=== PATIENT | male | born 1955 | race Caucasian/White ===

== ENCOUNTER 2023-03-28 11:12 | Emergency (ER) | payer MEDICARE, SELFPAY ==
[2023-03-28 11:27] VITALS: BP 121/53; PULSE 72; RESP 20; TEMP 35.6; O2SAT 97
--- NOTE | 2023-03-28 11:46 | ED.EXTPRO ---
HPI - Extremity Problem General Chief complaint: Extremity Problem,Nontraumatic Stated complaint: rt leg pain and swelling Time Seen by Provider: 03/28/23 11:40 Source: patient, family, RN notes reviewed and old records reviewed Mode of arrival: ambulatory Limitations: no limitations History of Present Illness HPI Narrative: right calf67 year old male who presents to [facility] care with complaints of right knee swelling with pain and swelling and pain to the right calf for one week duration. Patient denies any recent injury to his knee or to his calf, reports ligament injury to his right knee when adolescent that he reports still causes him some problems. Patient reports that his right calf is tight and painful when he is up on his feet especially. Patient does have palpable tenderness to right medial knee,and some mild pain at rest to calf has noted varicose veins. Patient reports that he started wearing compression hose a few days ago thinking it would help his swelling. Patient reports no chest pain or any shortness of breath.Patient reports that he has been applying Biofreeze to knee and calf, used ice, and elevation of right leg. MD Complaint: extremity pain and extremity swelling Onset (ago): week(s) (1) Location: right and lower extremity (knee and right calf) Severity scale (1-10): 8 Exacerbating factors: weight bearing Related Data Home Medications Medication Instructions Recorded Confirmed aspirin 81 mg tablet,delayed 81 mg PO DAILY 09/22/20 03/28/23 release multivitamin 1 tablet PO DAILY 09/22/20 03/28/23 Allergies Allergy/AdvReac Type Severity Reaction Status Date / Time PHENYTOIN SODIUM Allergy Mild pt does Uncoded 03/28/23 11:14 not remember Review of Systems Review of Systems: CONSTITUTIONAL: Denies fever, chills, or sweats. EYES: Denies visual changes, redness, or discharge. ENT: Denies rhinorrhea, congestion, sore throat, or otalgia. CARDIOVASCULAR: Denies chest pain, palpitations, or edema. RESPIRATORY: Denies cough or dyspnea. GASTROINTESTINAL: Denies abdominal pain, nausea, vomiting, or diarrhea. GENITOURINARY: Denies dysuria or hematuria. SKIN: Denies rash or itching. MUSCULOSKELETAL: Denies back pain reports pain to right knee and right calf,no other reported joint pain, or myalgia. NEUROLOGIC: Denies headache, numbness, or weakness. PSYCHIATRIC: Denies anxiety or depression. All systems reviewed & are unremarkable except as noted in HPI and below PMFSH Past Medical History Medical History COVID-19 History of closed head injury History of renal calculi History of seizure Mixed hyperlipidemia Type 2 diabetes mellitus without complication, with no history of insulin use Surgical History Surgical History History of laparoscopic cholecystectomy History of lithotripsy Family History Family History Mother CHF (congestive heart failure) Father COPD (chronic obstructive pulmonary disease) Social History Social History Smoking packs per day: 1.5 Smoking cigarettes per day: 30.0 Smoking status: Former smoker Tobacco type: cigarettes Smoking end date: 08/14/01 Alcohol intake: never Substance use: never Substance use type: does not use Lack of Transportation: No Lack of Food: Never True Current Housing: I Have Housing Concerned About Future Housing: No Difficulty Paying Gas/Electric Bills: No Difficulty Paying for Meds: No Currently Unemployed: No Education: Decline to Answer Difficulty w/ Childcare or Family Care: No Living arrangements: with family Occupation/Education: retired Additional occupation/education comments: [employer] Gender identity (if verbalized by the patient): Male Sexual Orientat
== END 2023-03-28 11:58 | disposition short-term general hospital (02) ==
PROVIDERS: Emergency Provider Registered Nurse; PCP Family Medicine
DX: M25.461 Effusion, right knee (principal); M25.561 Pain in right knee; M79.661 Pain in right lower leg; Z87.891 Personal history of nicotine dependence; E78.2 Mixed hyperlipidemia; E11.9 Type 2 diabetes mellitus without complications; Z79.84 Long term (current) use of oral hypoglycemic drugs; Z86.16 Personal history of COVID-19; Z79.82 Long term (current) use of aspirin
CPT/HCPCS: 99212; G0463

== ENCOUNTER 2023-03-28 12:15 | Emergency (ER) | payer MEDICARE, SELFPAY ==
--- NOTE | ~2023-03-28 | XR_ITS ---
EXAMINATION: XR knee RT 3V DATE: 03/28/2023 13:24 INDICATION: Right knee pain TECHNIQUE: Three views of the right knee were obtained. COMPARISON: 08/06/2013 FINDINGS: Alignment is normal. No fracture or osteochondral lesion. There is tricompartmental osteoar thritis of the knee, moderate in the medial and patellofemoral compartments. No joint effusion/synovi tis. Soft tissues are unremarkable. IMPRESSION: 1. No acute osseous abnormality. Reviewed, dictated and finalized at location L.
--- NOTE | ~2023-03-28 | US_ITS ---
EXAMINATION: US venous doppler LE RT DATE: 03/28/2023 12:50 INDICATION: Right calf pain and swelling. TECHNIQUE: Grayscale ultrasound images without and with compression and Doppler ultrasound images of the right lower extremity veins were obtained. COMPARISON: Ultrasound 08/06/2013 FINDINGS: The visualized portions of right common femoral vein, profunda (deep) femoral vein, femoral vein, pop liteal vein, peroneal veins, posterior tibial veins, and greater saphenous vein outflow are patent. IMPRESSION: 1. No deep venous thrombosis. Reviewed, dictated and finalized at location A.
[2023-03-28 12:20] VITALS: BP 143/70; PULSE 73; RESP 20; TEMP 36.9; O2SAT 99
--- NOTE | 2023-03-28 12:32 | PC.NURSE ---
pt off the floor for ultrasound
--- NOTE | 2023-03-28 12:48 | ED.EXTPRO ---
HPI - Extremity Problem General Chief complaint: Extremity Problem,Nontraumatic Stated complaint: right leg swelling Time Seen by Provider: 03/28/23 12:20 History of Present Illness HPI Narrative: 67-year-old male presented the ED for evaluation of right leg pain has been ongoing for the last week. Patient initially followed up at the urgent care but was referred to the emergency department for further work-up and DVT rule out. Patient is complaining of right medial knee pain that has been ongoing for the last week. Patient states he has had increased pain in his calf after favoring the knee. Patient has been taking naproxen for pain control without significant improvement. Related Data Home Medications Medication Instructions Recorded Confirmed aspirin 81 mg tablet,delayed 81 mg PO DAILY 09/22/20 03/28/23 release multivitamin 1 tablet PO DAILY 09/22/20 03/28/23 Allergies Allergy/AdvReac Type Severity Reaction Status Date / Time PHENYTOIN SODIUM Allergy Mild pt does Uncoded 03/28/23 11:14 not remember Review of Systems Review of Systems: All systems reviewed & are unremarkable except as noted in HPI and below PMFSH Past Medical History Medical History COVID-19 History of closed head injury History of renal calculi History of seizure Mixed hyperlipidemia Type 2 diabetes mellitus without complication, with no history of insulin use Surgical History Surgical History History of laparoscopic cholecystectomy History of lithotripsy Family History Family History Mother CHF (congestive heart failure) Father COPD (chronic obstructive pulmonary disease) Social History Social History (Updated 01/16/23 @ 15:34 by Jane Gomez MA) Smoking packs per day: 1.5 Smoking cigarettes per day: 30.0 Smoking status: Former smoker Tobacco type: cigarettes Smoking end date: 08/14/01 Alcohol intake: never Substance use: never Substance use type: does not use Lack of Transportation: No Lack of Food: Never True Current Housing: I Have Housing Concerned About Future Housing: No Difficulty Paying Gas/Electric Bills: No Difficulty Paying for Meds: No Currently Unemployed: No Education: Decline to Answer Difficulty w/ Childcare or Family Care: No Living arrangements: with family Occupation/Education: retired Additional occupation/education comments: [employer] Gender identity (if verbalized by the patient): Male Sexual Orientation (if Verbalized by the Patient): Straight or Heterosexual Exam Narrative: APPEARANCE: Well appearing, no pain, no distress, well-nourished. HEAD: normocephalic, atraumatic. EYES: PERRLA/EOMI, conjunctivae clear. NOSE: Normal no drainages. RESPIRATORY: Airway patent, respirations nonlabored. Clear to auscultation bilaterally, no rales, rhonchi, wheezing. CARDIOVASCULAR: Regular rate and rhythm without murmurs rubs or gallops. ABDOMINAL: Soft, nontender, nondistended, normal bowel sounds MUSCULOSKELETAL: Medial right knee tenderness to palpation NEURO: Alert. Cranial nerves II through XII intact. Good gait. Good coordination SKIN: Warm, dry. Normal Color Course Course Emergency Course: 67-year-old male presented to ED for evaluation of right knee pain. Ultrasound was negative for DVT. X-ray showed no acute fracture dislocation. Patient has been taking naproxen for pain control. Patient was provided Flexeril for the muscular calf pain. Patient was encouraged of close follow-up with orthopedics and with his primary care physician for additional outpatient testing. Patient and family were comfortable with the plan for discharge and close follow-up Vital Signs Vital signs: Vital Signs Temperature 98.4 F 03/28/23 12:20 Pulse Rate 73 08
[2023-03-28] MEDS: CYCLOBENZAPRINE HCL 10 MG TABLET PO (13:16)
== END 2023-03-28 13:49 | disposition home or self-care (01) ==
PROVIDERS: Emergency Provider Emergency Medicine; PCP Family Medicine
DX: M25.561 Pain in right knee (principal); M79.661 Pain in right lower leg; E11.9 Type 2 diabetes mellitus without complications; E78.2 Mixed hyperlipidemia; Z86.16 Personal history of COVID-19; Z87.442 Personal history of urinary calculi; Z87.891 Personal history of nicotine dependence; Z90.49 Acquired absence of other specified parts of digestive tract; Z79.82 Long term (current) use of aspirin; Z79.84 Long term (current) use of oral hypoglycemic drugs
CPT/HCPCS: 73562; 93971; 99284; A9270

== ENCOUNTER → 2023-08-29 10:39 | Outpatient (CLI) | payer MEDICARE, SELFPAY ==
--- NOTE | ~2023-08-29 | XR_ITS ---
XR lumbar spine 6V w bending DATE: 08/29/2023 11:01 INDICATION: Back pain TECHNIQUE: Standing AP, lateral, bilateral oblique views and coned lateral lumbosacral view. Standing flexion and extension views. COMPARISON: None FINDINGS: There is diffuse osteopenia. There is mild thoracolumbar dextroscoliosis. There is normal alignment of the lumbar spine with no evidence of instability with flexion or extensi on. Is mild degenerative disc disease at L1-2 and L2-3, moderately severe degenerative disease at L3-4 an d L4-5 and severe degenerative disc disease at L5-S1. No fracture or bone destruction, spondylolysis or spondylolisthesis. The sacroiliac joints are intact. There is calcification of the abdominal aorta and iliac arteries; no apparent abdominal aortic aneury sm. Probable right renal calcified calculi. Status post cholecystectomy. IMPRESSION: Mild dextro scoliosis Osteopenia Multilevel degenerative disc disease, most severe at L5-S1 Probable right nephrolithiasis Status post cholecystectomy Reviewed, dictated and finalized at location L. E ENGINEER
== END ==
PROVIDERS: PCP Anesthesiology Pain Medicine; Visit Provider Anesthesiology Pain Medicine
DX: M54.9 Dorsalgia, unspecified (principal); M48.062 Spinal stenosis, lumbar region with neurogenic claudication; M41.86 Other forms of scoliosis, lumbar region; M51.37 Other intervertebral disc degeneration, lumbosacral region; Z90.49 Acquired absence of other specified parts of digestive tract
CPT/HCPCS: 72114

== ENCOUNTER → 2023-09-06 08:18 | Outpatient (CLI) | payer MEDICARE, SELFPAY ==
--- NOTE | ~2023-09-06 | MR_ITS ---
MRI of the lumbar spine Clinical History: Right sciatica Technique: Axial T2-weighted images, and sagittal T1-weighted, T2-weighted, and T2 fat-sat images wer e acquired. Findings: There is no fracture or subluxation of the lumbar spine. Vertebral bodies maintain normal h eight and line. No bone marrow signal abnormality identified. At L1-L2, there is no significant disc bulge or herniation. There is mild to moderate facet arthropat hy. No central canal stenosis or neural foraminal narrowing. At L2-L3, there is minimal disc bulge and moderate facet arthropathy. No central canal stenosis or ne ural foraminal narrowing. At L3-L4, there is degenerative disc narrowing with mild disc bulge and moderate facet arthropathy. N o central canal stenosis. Neural foramina are preserved. At L4-L5, there is moderate to advanced degenerative disc narrowing. There is minimal disc bulge with moderate facet arthropathy. No central canal stenosis or neural foraminal narrowing. At L5-S1, there is moderate to advanced degenerative disc narrowing. There is no disc bulge or hernia tion. There is mild facet arthropathy. No central canal stenosis or neural foraminal narrowing. Paravertebral soft tissues are unremarkable.. Impression: Mild degenerative spondylosis, as above. Reviewed, dictated and finalized at location . INTERN Impression: Mild degenerative spondylosis, as above.
== END ==
PROVIDERS: PCP Anesthesiology Pain Medicine; Visit Provider Anesthesiology Pain Medicine
DX: M54.50 Low back pain, unspecified (principal); M43.06 Spondylolysis, lumbar region
CPT/HCPCS: 72148